=== PATIENT | male | born 1995 | race Hispanic/Latino ===

== ENCOUNTER 2017-08-03 09:27 | Emergency (ER) | payer OTHER ==
[2017-08-03] MEDS: AUGMENTIN 875 MG TAB PO (11:08)
[2017-08-03] MEDS: ACETAMINOPHEN 325 MG TAB PO (11:08)
[2017-08-03] MEDS: MAGIC MOUTHWASH SUSPENSION BTL SSP (11:25)
== END 2017-08-03 11:26 | disposition home or self-care (01) ==
LOC: M ED 09:27
DX: J02.0 Streptococcal pharyngitis (principal); F17.210 Nicotine dependence, cigarettes, uncomplicated
CPT/HCPCS: 87880